=== PATIENT | female | born 1995 | race American Indian/Alaskan Native ===

== ENCOUNTER 2021-05-16 01:48 | Emergency (ER) | payer SELFPAY ==
[2021-05-16 10:38] LABS: HCG Qualitative,Urine Negative (Negative)
[2021-05-16] MEDS ORDERED: methylPREDNISolone Sod Succinate 125 MG/2 ML INJ IM ONE (10:41)
--- NOTE | 2021-05-16 10:47 | Emergency Department Report ---
ED Back Pain/Injury HPI - General Chief Complaint: Back Pain/Injury Stated Complaint: BACK PAIN Time Seen by Provider: 05/16/21 08:12 Source: patient Limitations: No Limitations - History of Present Illness Initial Comments: There is a pleasant 26-year-old female presents emerged part with chief complaint of acute low back pain has been present for the past 2 days. She denies any specific injuries. She denies any radiation. Reports pain is aggravated by movement. She denies any saddle anesthesia, urinary or bowel incontinence, urinary tension, fever, chills, night sweats, headache, dizziness, blurry vision, chest pain or shortness of breath, weakness or any other associated symptoms. - Related Data Previous Rx's Medication Instructions Recorded Last Taken Type methOCARBAMOL [Robaxin TAB] 500 mg PO Q6HR #20 tablet 05/16/21 Unknown Rx methylPREDNISolone [Medrol 4MG 4 mg PO ONCE #1 tab.ds.pk 05/16/21 Unknown Rx DOSEPAK (21 tabs)] traMADoL [Ultram 50 MG tab] 50 mg PO Q4HR PRN #12 tablet 05/16/21 Unknown Rx ED Review of Systems ROS: Stated complaint: BACK PAIN Other details as noted in HPI Constitutional: denies: chills, fever Eyes: denies: eye pain, eye discharge, vision change ENT: denies: ear pain, throat pain Respiratory: denies: cough, shortness of breath, wheezing Cardiovascular: denies: chest pain, palpitations Endocrine: no symptoms reported Gastrointestinal: denies: abdominal pain, nausea, diarrhea Genitourinary: denies: urgency, dysuria, discharge Musculoskeletal: as per HPI, back pain. denies: joint swelling, arthralgia Skin: denies: rash, lesions Neurological: denies: headache, weakness, paresthesias Psychiatric: denies: anxiety, depression Hematological/Lymphatic: denies: easy bleeding, easy bruising ED Past Medical Hx - Past Medical History Previous Medical History?: Yes Hx Hypertension: No Hx CVA: No Hx Congestive Heart Failure: No Hx Diabetes: No Hx Deep Vein Thrombosis: No Hx Pulmonary Embolism: No Hx GERD: No Hx Liver Disease: No Hx Renal Disease: No Hx Sickle Cell Disease: No Hx Arthritis: No Hx Headaches / Migraines: No Hx Seizures: No Hx Kidney Stones: No Hx Psychiatric Treatment: No Hx Asthma: Yes Hx COPD: No Hx Tuberculosis: No Hx Dementia: No Hx HIV: No - Surgical History Past Surgical History?: No Hx Coronary Stent: No Hx Open Heart Surgery: No Hx Pacemaker: No Hx Internal Defibrillator: No Hx Cholecystectomy: No Hx Appendectomy: No Hx Breast Surgery: No - Medications Home Medications: Home Medications Medication Instructions Recorded Confirmed Last Taken Type methOCARBAMOL [Robaxin TAB] 500 mg PO Q6HR #20 tablet 05/16/21 Unknown Rx methylPREDNISolone [Medrol 4MG 4 mg PO ONCE #1 tab.ds.pk 05/16/21 Unknown Rx DOSEPAK (21 tabs)] traMADoL [Ultram 50 MG tab] 50 mg PO Q4HR PRN #12 tablet 05/16/21 Unknown Rx ED Physical Exam - General Limitations: No Limitations General appearance: alert, in no apparent distress - Head Head exam: Present: atraumatic, normocephalic - Eye Eye exam: Present: normal appearance - ENT ENT exam: Present: normal exam, normal orophraynx, mucous membranes moist - Neck Neck exam: Present: normal inspection, full ROM. Absent: tenderness, meningismus - Respiratory Respiratory exam: Present: normal lung sounds bilaterally. Absent: respiratory distress, wheezes, rales, rhonchi, stridor - Cardiovascular Cardiovascular Exam: Present: regular rate, normal rhythm, normal heart sounds. Absent: systolic murmur, diastolic murmur, rubs, gallop - GI/Abdominal GI/Abdominal exam: Present: soft, normal bowel sounds. Absent: distended, tenderness, guarding, rebound, pulsatile mass - Extremities Exam Extremities exam: Present: normal inspection, full ROM, normal capillary refill. Absent: tenderness, calf tenderness - Back Exam Back exam: Present: normal inspection, full ROM, paraspinal tenderness (Bilateral lumbar paraspinal tenderness with no midline tenderness.), other (Normal deep tendon reflexes bilateral Achilles and patella 2+ bilaterally. Normal dorsiflexion and plantar flexion.). Absent: tenderness, CVA tenderness (R), CVA tenderness (L) - Neurological Exam Neurological exam: Present: alert, oriented X3, CN II-XII intact, normal gait, reflexes normal, other. Absent: motor sensory deficit - Psychiatric Psychiatric exam: Present: normal affect, normal mood - Skin Skin exam: Present: warm, dry, intact, normal color. Absent: rash ED Course Vital Signs 05/16/21 04:50 Temperature 98.2 F Pulse Rate 87 Respiratory 17 Rate Blood Pressure 147/87 O2 Sat by Pulse 100 Oximetry ED Medical Decision Making - Medical Decision Making Patient well-appearing, nontoxic in no acute distress. test was negative. Jose Juan exam was benign. Patient had tenderness palpation across the low back with no midline tenderness. No injury making my suspicion for fracture or spinal epidural hematoma unlikely. No blood thinner use. She had no IV drug use or fever making spinal epidural abscess unlikely. She has no cauda equina syndrome symptoms such as urinary retention, urinary or bowel incontinence, saddle anesthesia. She was given instructions on when to return to the emergency department. She had no history of cancer or metastatic disease and my suspicion for this is low. Recommended outpatient follow-up with orthopedic spine doctor, pain medication and return to emerge department any change or worsening symptoms. She verbalized understand the diagnosis, treatment and follow-up instructions and all her questions were answered. - Differential Diagnosis Strain, sprain, HNP Critical care attestation.: If time is entered above; I have spent that time in minutes in the direct care of this critically ill patient, excluding procedure time. ED Disposition Clinical Impression: Acute low back pain Qualifiers: Back pain laterality: unspecified Sciatica presence: without sciatica Qualified Code(s): M54.50 - Low back pain, unspecified Disposition: 01 HOME / SELF CARE / HOMELESS Is pt being admited?: No Condition: Stable Instructions: Acute Back Pain, Adult Prescriptions: methylPREDNISolone [Medrol 4MG DOSEPAK (21 tabs)] 4 mg PO ONCE #1 tab.ds.pk methOCARBAMOL [Robaxin TAB] 500 mg PO Q6HR #20 tablet traMADoL [Ultram 50 MG tab] 50 mg PO Q4HR PRN #12 tablet PRN Reason: Pain Referrals: [facility] [Provider Group] - 3-5 Days PRIMARY CARE, [Primary Care Provider] - 3-5 Days Forms: Work/School Release Form(ED) Time of Disposition: 10:46
[2021-05-16] MEDS ORDERED: KETOROLAC 30 MG/1 ML INJ IM NR (11:00)
[2021-05-16 11:21] VITALS: BP 130/83
== END 2021-05-16 11:23 | disposition home or self-care (01) ==
LOC: ED 01:48
DX: M54.50 Low back pain, unspecified (principal); Z79.899 Other long term (current) drug therapy
CPT/HCPCS: 81025; 96372; 99283; J1885; J2930